=== PATIENT | male | born 1965 | race Two or more races ===

== ENCOUNTER 2017-04-27 10:42 | Inpatient (IN) | payer OTHER ==
[2017-04-27 10:59] VITALS: BMI 22.8
--- NOTE | 2017-04-27 12:32 | HP ---
CIWA Score - CIWA Score Nausea/Vomitin Muscle Tremors: 3 Anxiety: 4-Mod. Anxious/Guarded Agitation: 4-Moderately Restless Paroxysmal Sweats: 1-Minimal Palms Moist Orientation: 0-Oriented Tacttile Disturbances: 3-Moderate Itch/Numb/Burn Auditory Disturbances: 0-None Visual Disturbances: 0-None Headache: 0-None Present CIWA-Ar Total Score: 18 Admission ROS BHS - HPI Chief Complaint: DETOX TX FOR ALCOHOL DEPENDENCE Allergies/Adverse Reactions: Allergies Allergy/AdvReac Type Severity Reaction Status Date / Time No Known Allergies Allergy Verified 04/27/17 11:36 History of Present Illness: 51 Y/O H/MALE WITH A HX OF ALCOHOL, COCAINE,AND MARIJUANA DEPENENCE ON MMTP SEEKING DETOX TX Exam Limitations: No Limitations - Ebola screening Have you traveled outside of the country in the last 21 days: No Have you had contact with anyone from an Ebola affected area: No Have you been sick,other than usual withdrawal symptoms: No Do you have a fever: No - Review of Systems Constitutional: Chills, Loss of Appetite, Night Sweats, Changes in sleep EENT: reports: Tearing, Nose Congestion, Dental Problems (FULL UPPER AND PARTIAL BOTTOM DENTURES) Respiratory: reports: No Symptoms reported Cardiac: reports: Lightheadedness GI: reports: Diarrhea, Nausea, Poor Appetite, Poor Fluid Intake, Vomiting : reports: No Symptoms Reported Musculoskeletal: reports: Back Pain, Joint Pain, Muscle Pain Integumentary: reports: Other (TATTOOS ON UPPER EXTREMITIES) Neuro: reports: Headache, Tremors, Unsteady Gait, Dizziness Endocrine: reports: No Symptoms Reported Hematology: reports: No Symptoms Reported Psychiatric: reports: Orientated x3, Agitated, Anxious, Depressed Other Systems: Reviewed and Negative Patient History - Patient Medical History Hx Anemia: No Hx Asthma: No Hx Chronic Obstructive Pulmonary Disease (COPD): No Hx Cancer: No Hx Cardiac Disorders: No Hx Congestive Heart Failure: No Hx Hypertension: No Hx Hypercholesterolemia: No Hx Pacemaker: No HX Cerebrovascular Accident: No Hx Seizures: No Hx Dementia: No Hx Diabetes: No Hx Gastrointestinal Disorders: No Hx Liver Disease: No Hx Genitourinary Disorders: No Hx Sexually Transmitted Disorders: No (DENIES) Hx Renal Disease (ESRD): No Hx Thyroid Disease: No Hx Human Immunodeficiency Virus (HIV): No (NEGATIVE HX) Hx Hepatitis C: Yes Hx Depression: Yes (WAS ON CYMBALTA IN THE PAST;DECLINED TO SEE PSYCH HERE.) Hx Suicide Attempt: No Hx Bipolar Disorder: No Hx Schizophrenia: No - Patient Surgical History Past Surgical History: Yes Hx Neurologic Surgery: No Hx Cataract Extraction: No Hx Cardiac Surgery: No Hx Lung Surgery: No Hx Breast Surgery: No Hx Breast Biopsy: No Hx Abdominal Surgery: No Hx Appendectomy: No Hx Cholecystectomy: No Hx Genitourinary Surgery: No Hx Orthopedic Surgery: Yes (L knee sx in 1996) Other Surgical History: R foot sx x2 for tendonitis and bone spurs in 2009 Anesthesia Reaction: No - PPD History Previous Implant?: Yes Documented Results: Negative w/proof Implanted On Prior [facility] Admission?: Yes Date: 03/03/14 Results: 0 mm PPD to be Administered?: Yes - Reproductive History Patient is a Female of Child Bearing Age (11 -55 yrs old): No (MALE) - Smoking Cessation Smoking history: Current every day smoker Have you smoked in the past 12 months: Yes Aproximately how many cigarettes per day: 20 Hx Chewing Tobacco Use: No Initiated information on smoking cessation: Yes 'Breaking Loose' booklet given: 04/27/17 - Substance & Tx. History Hx Alcohol Use: Yes (BEER) Hx Substance Use: Yes (COCAINE/MARIJUANA) Substance Use Type: Alcohol, Cocaine, Marijuana Hx Substance Use Treatment: Yes (LAST TX AT [facility] IN 2013.) - Substances Abused Alcohol Route: Oral Frequency: Daily Amount used: beer(2-6pks-24 oz) Age of first use: 15 Date of Last Use: 04/26/17 Cocaine Route: Smoking Frequency: Daily Amount used: $100 Age of first use: 18 Date of Last Use: 04/26/17 Marijuana/Hashish Route: Smoking Frequency: Daily Amount used: $60 Age of first use: 14 Date of Last Use: 04/27/17 Family Disease History - Family Disease History Family Disease History: Diabetes: Mother (HTN, throid), Heart Disease: Father, Mother, Other: Mother Admission Physical Exam BHS - Vital Signs Vital Signs: Vital Signs - 24 hr 04/27/17 10:56 Temperature 98.1 F Pulse Rate 70 Respiratory 18 Rate Blood Pressure 154/83 - Physical General Appearance: Yes: Moderate Distress, Irritable, Anxious HEENTM: Yes: EOMI, Normocephalic, CARLINE, Pharynx Normal, Nasal Congestion, Rhinorrhea, Other (NASAL SEPTAL DEVIATION) Respiratory: Yes: Lungs Clear, Normal Breath Sounds, No Respiratory Distress Neck: Yes: Supple, Trachea in good position Breast: Yes: Breast Exam Deferred Cardiology: Yes: Regular Rhythm, Regular Rate, S1, S2 Abdominal: Yes: Normal Bowel Sounds, Non Tender, Soft Genitourinary: Yes: Other (N/C) Back: Yes: Within Normal Limits Musculoskeletal: Yes: full range of Motion, Gait Steady Extremities: Yes: Normal Range of Motion, Non-Tender Neurological: Yes: master deputy sheriff court security II-XII NML intact, Fully Oriented, Alert Integumentary: Yes: Dry, Warm, Other (TATTOO ON LEFT FOREARM) - Diagnostic (1) Nicotine dependence Current Visit: Yes Status: Acute Qualifiers: Nicotine product type: cigarettes Substance use status: in withdrawal Qualified Code(s): F17.213 - Nicotine dependence, cigarettes, with withdrawal (2) Alcohol dependence with uncomplicated withdrawal Current Visit: Yes Status: Acute (3) Cocaine dependence, uncomplicated Current Visit: Yes Status: Acute (4) Cannabis dependence, uncomplicated Current Visit: Yes Status: Acute Cleared for Admission BHS - Detox or Rehab Detox Regimen/Protocol: Librium S Breath Alcohol Content Breath Alcohol Content: 0 Urine Drug Screen - Results Drug Screen Negative: No Urine Drug Screen Results: THC-Marijuana, ZANDRA-Cocaine, OPI-Opiates, MTD- Methadone
[2017-04-27] MEDS ORDERED: guaiFENesin/D-METHORPHAN HB 10 ML UNIT-DOSE CUPS PO PRN (12:43)
[2017-04-27] MEDS ORDERED: MAGNESIUM HYDROX 2400MG/30ML ORAL SUSPENSION 30 ML CUP PO PRN (12:43)
[2017-04-27] MEDS ORDERED: ACETAMINOPHEN 325 MG TABLET (FP) PO PRN (12:43)
[2017-04-27] MEDS ORDERED: chlordiazePOXIDE HCL 25 MG CAPSULE PO PRN (12:43)
[2017-04-27] MEDS ORDERED: MENTHOL/PHENOL 1 EACH UD MM PRN (12:43)
[2017-04-27] MEDS ORDERED: NICOTINE POLACRILEX 4 MG GUM BUC PRN (12:43)
[2017-04-27] MEDS ORDERED: LOPERAMIDE HCL 2 MG CAPSULE PO PRN (12:43)
[2017-04-27] MEDS ORDERED: P-EPHED 60MG/TRIPROLIDI 2.5MG TABLET PO PRN (12:43)
[2017-04-27] MEDS ORDERED: MAGNESIUM CITRATE 300 ML BOTTLE PO PRN (12:43)
[2017-04-27] MEDS ORDERED: IBUPROFEN 400 MG TABLET (FP) PO PRN (12:43)
[2017-04-27] MEDS ORDERED: chlordiazePOXIDE HCL 25 MG CAPSULE PO ONE (12:48)
[2017-04-27] MEDS: NICOTINE 21 MG/24 HOURS TOPICAL PATCH TD SCH (13:22)
[2017-04-27 14:38] LABS: HIV 1 & 2 AB NEGATIVE; HIV 1 AGp24 NEGATIVE
[2017-04-27] MEDS: chlordiazePOXIDE HCL 25 MG CAPSULE PO SCH ×2 (17:06→22:49)
[2017-04-27 18:27] LABS: URINE APPEARANCE CLEAR; URINE BILIRUBIN NEGATIVE (NEGATIVE); URINE BLOOD NEGATIVE (NEGATIVE); URINE COLOR YELLOW; URINE GLUCOSE (UA) NEGATIVE (NEGATIVE); URINE KETONE TRACE (NEGATIVE); URINE NITRITE NEGATIVE (NEGATIVE); URINE PROTEIN NEGATIVE (NEGATIVE); URINE UROBILINOGEN NEGATIVE E.U./dl (0.2-1.0)
[2017-04-27 18:28] LABS: URINE LEUK ESTERASE TRACE (NEGATIVE)
[2017-04-27 18:33] LABS: CALCIUM OXALATE CRYSTALS RARE /hpf (NONE SEEN); URINE BACTERIA RARE /hpf (NONE SEEN); URINE MUCUS FEW; URINE RBC 2 /hpf (0-3); URINE WBC <1 /hpf (3-5)
[2017-04-27] MEDS: THIAMINE HCL 100 MG TABLET (FP) PO SCH (22:49)
[2017-04-28] MEDS: chlordiazePOXIDE HCL 25 MG CAPSULE PO SCH ×4 (05:40→22:55)
[2017-04-28] MEDS: METHADONE HCL 40 MG DISPERSABLE TABLET PO SCH (05:40)
[2017-04-28 10:23] LABS: MCH 32.4 pg (25.7-33.7); MCHC 33.8 g/dl (32.0-35.9); MEAN CELL VOLUME 95.8 fl (80-96); MEAN PLT VOLUME 10.1 fl (7.5-11.1); PLATELET COUNT 189 K/MM3 (134-434); RDW 13.7 % (11.9-15.9); WHITE BLOOD COUNT 7.6 K/mm3 (4.0-10.0)
[2017-04-28] MEDS: PRENATAL VITAMINS W/ FOLIC ACID TABLET (FP) PO SCH (10:53)
[2017-04-28] MEDS: NICOTINE 21 MG/24 HOURS TOPICAL PATCH TD SCH (10:54)
[2017-04-28 11:00] LABS: SICKLE CELL SCREEN NEGATIVE (NEGATIVE)
[2017-04-28 11:06] LABS: ALBUMIN 4.2 g/dl (3.4-5.0); ALK PHOS 59 U/L (45-117); ANION GAP 8 (8-16); BILIRUBIN,TOTAL 0.8 mg/dL (0.2-1.0); CO2 27 mmol/L (21-32); CREATININE 0.9 mg/dL (0.7-1.3); GLUCOSE,RANDOM 74 mg/dL (74-106); SGOT/AST 37 U/L (15-37); SGPT/ALT 65 U/L (12-78); TOT PROT 7.9 g/dl (6.4-8.2)
--- NOTE | 2017-04-28 14:48 | PN ---
[facility] CIWA - CIWA Score Nausea/Vomitin-Mild Nausea/No Vomiting Muscle Tremors: 4-Moderate,w/Arms Extend Anxiety: 2 Agitation: 2 Paroxysmal Sweats: 1-Minimal Palms Moist Orientation: 0-Oriented Tacttile Disturbances: 2-Mild Itch/Numbness/Burn Auditory Disturbances: 2-Mild Harshness/Frighten Visual Disturbances: 3-Moderate Sensitivity Headache: 0-None Present CIWA-Ar Total Score: 17 S Progress Note (SOAP) Subjective: Fatigue, Tremors, Lower Back ache. Objective: PT. A & O X 3, OBSERVED AMBULATING ON UNIT. NO ACUTE DISTRESS. 04/28/17 14:46 Vital Signs Temperature 97.4 F L 04/28/17 13:49 Pulse Rate 56 L 04/28/17 13:49 Respiratory Rate 20 04/28/17 13:49 Blood Pressure 108/70 04/28/17 13:49 O2 Sat by Pulse Oximetry (%) Laboratory Tests 04/27/17 04/27/17 04/28/17 12:00 14:00 06:00 WBC 7.6 RBC 4.43 Hgb 14.4 Hct 42.5 MCV 95.8 MCHC 33.8 RDW 13.7 Plt Count 189 MPV 10.1 Sickle Cell Screen Negative Sodium Potassium Chloride Carbon Dioxide Anion Gap BUN Creatinine Creat Clearance w eGFR Random Glucose Calcium Total Bilirubin AST ALT Alkaline Phosphatase Total Protein Albumin Urine Color Yellow Urine Appearance Clear Urine pH 5.0 Ur Specific [place] >= 1.030 H Urine Protein Negative Urine Glucose (UA) Negative Urine Ketones Trace H Urine Blood Negative Urine Nitrite Negative Urine Bilirubin Negative Urine Urobilinogen Negative Ur Leukocyte Esterase Trace H Urine RBC 2 Urine WBC <1 Calcium Oxalate Crystal Rare Urine Bacteria Rare Urine Mucus Few RPR Titer HIV 1&2 Antibody Screen Negative HIV P24 Antigen Negative 04/28/17 04/28/17 06:00 06:00 WBC RBC Hgb Hct MCV MCHC RDW Plt Count MPV Sickle Cell Screen Sodium 140 Potassium 4.4 Chloride 105 Carbon Dioxide 27 Anion Gap 8 BUN 15 Creatinine 0.9 Creat Clearance w eGFR > 60 Random Glucose 74 Calcium 9.0 Total Bilirubin 0.8 D AST 37 D ALT 65 D Alkaline Phosphatase 59 Total Protein 7.9 Albumin 4.2 Urine Color Urine Appearance Urine pH Ur Specific [place] Urine Protein Urine Glucose (UA) Urine Ketones Urine Blood Urine Nitrite Urine Bilirubin Urine Urobilinogen Ur Leukocyte Esterase Urine RBC Urine WBC Calcium Oxalate Crystal Urine Bacteria Urine Mucus RPR Titer Nonreactive HIV 1&2 Antibody Screen HIV P24 Antigen LABS NOTED. Assessment: 04/28/17 14:46 WITHDRAWAL SYMPTOMS. Plan: CONTINUE DETOX.
--- NOTE | 2017-04-28 15:52 | EKG ---
Test Reason : Blood Pressure : / mmHG Vent. Rate : 051 BPM Atrial Rate : 051 BPM P-R Int : 160 ms QRS Dur : 090 ms QT Int : 494 ms P-R-T Axes : 064 025 034 degrees QTc Int : 455 ms SINUS BRADYCARDIA OTHERWISE NORMAL ECG NO PREVIOUS ECGS AVAILABLE Confirmed by MIKA YUAN MD ([id number]) on 04/28/2017 3:52:00 PM Referred By: Zaid Negrete Confirmed By:MIKA YUAN MD
[2017-04-28] MEDS: THIAMINE HCL 100 MG TABLET (FP) PO SCH (22:54)
[2017-04-28] MEDS: diphenhydrAMINE HCL 50 MG CAPSULE PO PRN (22:55)
[2017-04-29] MEDS: METHADONE HCL 40 MG DISPERSABLE TABLET PO SCH (05:43)
[2017-04-29] MEDS: chlordiazePOXIDE HCL 25 MG CAPSULE PO SCH ×2 (05:43→10:50)
[2017-04-29] MEDS: MAG HYDROX/AL HYDROX/SIMETH 30 ML UNIT-DOSE CUP PO PRN ×2 (07:44→14:24)
[2017-04-29] MEDS: PRENATAL VITAMINS W/ FOLIC ACID TABLET (FP) PO SCH (10:50)
[2017-04-29] MEDS: NICOTINE 21 MG/24 HOURS TOPICAL PATCH TD SCH (10:51)
--- NOTE | 2017-04-29 12:19 | PN ---
S CIWA - CIWA Score Nausea/Vomitin Muscle Tremors: 4-Moderate,w/Arms Extend Anxiety: 1-Mildly Anxious Agitation: 2 Paroxysmal Sweats: 3 Orientation: 2-Disoriented Date<2 days Tacttile Disturbances: 0-None Auditory Disturbances: 0-None Visual Disturbances: 2-Mild Sensitivity Headache: 0-None Present CIWA-Ar Total Score: 17 BHS Progress Note (SOAP) Subjective: Tremors, Nausea, Lower Back Ache, Constipation, Interrupted sleep, Sweating. Objective: PT. A & O X 2 (DISORIENTED ABOUT DAY / DATE). PT. OBSERVED AMBULATING ON UNIT. NO ACUTE DISTRESS. 04/29/17 12:17 Vital Signs Temperature 97.5 F L 04/29/17 10:17 Pulse Rate 59 L 04/29/17 10:17 Respiratory Rate 18 04/29/17 10:17 Blood Pressure 129/90 04/29/17 10:17 O2 Sat by Pulse Oximetry (%) Laboratory Tests 04/27/17 04/27/17 04/28/17 12:00 14:00 06:00 WBC 7.6 RBC 4.43 Hgb 14.4 Hct 42.5 MCV 95.8 MCHC 33.8 RDW 13.7 Plt Count 189 MPV 10.1 Sickle Cell Screen Negative Sodium Potassium Chloride Carbon Dioxide Anion Gap BUN Creatinine Creat Clearance w eGFR Random Glucose Calcium Total Bilirubin AST ALT Alkaline Phosphatase Total Protein Albumin Urine Color Yellow Urine Appearance Clear Urine pH 5.0 Ur Specific [place] >= 1.030 H Urine Protein Negative Urine Glucose (UA) Negative Urine Ketones Trace H Urine Blood Negative Urine Nitrite Negative Urine Bilirubin Negative Urine Urobilinogen Negative Ur Leukocyte Esterase Trace H Urine RBC 2 Urine WBC <1 Calcium Oxalate Crystal Rare Urine Bacteria Rare Urine Mucus Few RPR Titer HIV 1&2 Antibody Screen Negative HIV P24 Antigen Negative 04/28/17 04/28/17 06:00 06:00 WBC RBC Hgb Hct MCV MCHC RDW Plt Count MPV Sickle Cell Screen Sodium 140 Potassium 4.4 Chloride 105 Carbon Dioxide 27 Anion Gap 8 BUN 15 Creatinine 0.9 Creat Clearance w eGFR > 60 Random Glucose 74 Calcium 9.0 Total Bilirubin 0.8 D AST 37 D ALT 65 D Alkaline Phosphatase 59 Total Protein 7.9 Albumin 4.2 Urine Color Urine Appearance Urine pH Ur Specific [place] Urine Protein Urine Glucose (UA) Urine Ketones Urine Blood Urine Nitrite Urine Bilirubin Urine Urobilinogen Ur Leukocyte Esterase Urine RBC Urine WBC Calcium Oxalate Crystal Urine Bacteria Urine Mucus RPR Titer Nonreactive HIV 1&2 Antibody Screen HIV P24 Antigen LABS NOTED. Assessment: 04/29/17 12:18 WITHDRAWAL SYMPTOMS. Plan: CONTINUE DETOX. PRN MOM FOR CONSTIPATION. INCREASE PO FLUID INTAKE.
[2017-04-29] MEDS: RANITIDINE HCL 150 MG TABLET (FP) PO SCH ×2 (12:56→22:39)
[2017-04-29] MEDS: chlordiazePOXIDE 5 MG CAPSULE PO SCH ×2 (17:00→22:39)
[2017-04-29] MEDS: THIAMINE HCL 100 MG TABLET (FP) PO SCH (22:39)
[2017-04-29] MEDS: diphenhydrAMINE HCL 50 MG CAPSULE PO PRN (22:40)
[2017-04-30] MEDS: MAG HYDROX/AL HYDROX/SIMETH 30 ML UNIT-DOSE CUP PO PRN (01:45)
[2017-04-30] MEDS: chlordiazePOXIDE 5 MG CAPSULE PO SCH ×2 (05:22→10:25)
[2017-04-30] MEDS: METHADONE HCL 40 MG DISPERSABLE TABLET PO SCH (05:22)
[2017-04-30] MEDS: RANITIDINE HCL 150 MG TABLET (FP) PO SCH ×2 (10:25→22:03)
[2017-04-30] MEDS: PRENATAL VITAMINS W/ FOLIC ACID TABLET (FP) PO SCH (10:25)
[2017-04-30] MEDS: NICOTINE 21 MG/24 HOURS TOPICAL PATCH TD SCH (10:25)
[2017-04-30] MEDS: DOCUSATE SODIUM 100 MG CAPSULE (FP) PO SCH ×2 (14:06→22:03)
--- NOTE | 2017-04-30 14:58 | PN ---
BHS Progress Note (SOAP) Subjective: Nausea, Stomach Cramping, Constipation, Interrupted Sleep, Lower Back ache. Objective: PT. A & O X 2 (DISORIENTED ABOUT DAY / DATE). PT. OBSERVED AMBULATING ON UNIT. NO ACUTE DISTRESS. 04/30/17 14:56 Vital Signs Temperature 96.8 F L 04/30/17 13:44 Pulse Rate 67 04/30/17 13:44 Respiratory Rate 18 04/30/17 13:44 Blood Pressure 117/78 04/30/17 13:44 O2 Sat by Pulse Oximetry (%) Laboratory Tests 04/27/17 04/27/17 04/28/17 12:00 14:00 06:00 WBC 7.6 RBC 4.43 Hgb 14.4 Hct 42.5 MCV 95.8 MCHC 33.8 RDW 13.7 Plt Count 189 MPV 10.1 Sickle Cell Screen Negative Sodium Potassium Chloride Carbon Dioxide Anion Gap BUN Creatinine Creat Clearance w eGFR Random Glucose Calcium Total Bilirubin AST ALT Alkaline Phosphatase Total Protein Albumin Urine Color Yellow Urine Appearance Clear Urine pH 5.0 Ur Specific [place] >= 1.030 H Urine Protein Negative Urine Glucose (UA) Negative Urine Ketones Trace H Urine Blood Negative Urine Nitrite Negative Urine Bilirubin Negative Urine Urobilinogen Negative Ur Leukocyte Esterase Trace H Urine RBC 2 Urine WBC <1 Calcium Oxalate Crystal Rare Urine Bacteria Rare Urine Mucus Few RPR Titer HIV 1&2 Antibody Screen Negative HIV P24 Antigen Negative 04/28/17 04/28/17 06:00 06:00 WBC RBC Hgb Hct MCV MCHC RDW Plt Count MPV Sickle Cell Screen Sodium 140 Potassium 4.4 Chloride 105 Carbon Dioxide 27 Anion Gap 8 BUN 15 Creatinine 0.9 Creat Clearance w eGFR > 60 Random Glucose 74 Calcium 9.0 Total Bilirubin 0.8 D AST 37 D ALT 65 D Alkaline Phosphatase 59 Total Protein 7.9 Albumin 4.2 Urine Color Urine Appearance Urine pH Ur Specific [place] Urine Protein Urine Glucose (UA) Urine Ketones Urine Blood Urine Nitrite Urine Bilirubin Urine Urobilinogen Ur Leukocyte Esterase Urine RBC Urine WBC Calcium Oxalate Crystal Urine Bacteria Urine Mucus RPR Titer Nonreactive HIV 1&2 Antibody Screen HIV P24 Antigen LABS NOTED. Assessment: 04/30/17 14:56 WITHDRAWAL SYMPTOMS. Plan: CONTINUE DETOX. COLACE, 100 MG PO BID FOR CONSTIPATION.
[2017-04-30] MEDS: chlordiazePOXIDE HCL 10 MG CAPSULE PO SCH ×2 (17:25→22:03)
[2017-04-30] MEDS: diphenhydrAMINE HCL 50 MG CAPSULE PO PRN (22:03)
[2017-04-30] MEDS: THIAMINE HCL 100 MG TABLET (FP) PO SCH (22:04)
[2017-05-01] MEDS: METHADONE HCL 40 MG DISPERSABLE TABLET PO SCH (06:07)
[2017-05-01] MEDS: chlordiazePOXIDE HCL 10 MG CAPSULE PO SCH ×2 (06:08→10:19)
[2017-05-01 06:18] VITALS: BP 110/72; PULSE 62; TEMP 97.3
[2017-05-01] MEDS: PRENATAL VITAMINS W/ FOLIC ACID TABLET (FP) PO SCH (10:18)
[2017-05-01] MEDS: RANITIDINE HCL 150 MG TABLET (FP) PO SCH (10:18)
[2017-05-01] MEDS: DOCUSATE SODIUM 100 MG CAPSULE (FP) PO SCH (10:18)
[2017-05-01] MEDS: MAG HYDROX/AL HYDROX/SIMETH 30 ML UNIT-DOSE CUP PO PRN (10:19)
[2017-05-01] MEDS: NICOTINE 21 MG/24 HOURS TOPICAL PATCH TD SCH (10:21)
--- NOTE | 2017-05-01 14:43 | DS ---
[facility] Detox Discharge Summary Admission Date: 04/27/17 Discharge Date: 05/01/17 - History Present History: Alcohol Dependence, Cannabis Dependence, Cocaine Dependence, Opioid Dependence, MMTP Pertinent Past History: GERD Hepatitis C - Physical Exam Results Vital Signs: Vital Signs Temperature 97.3 F L 05/01/17 06:17 Pulse Rate 62 05/01/17 06:17 Respiratory Rate 18 05/01/17 06:17 Blood Pressure 110/72 05/01/17 06:17 O2 Sat by Pulse Oximetry (%) Pertinent Admission Physical Exam Findings: Withdrawal symptoms Laboratory Tests 04/27/17 04/27/17 04/28/17 12:00 14:00 06:00 WBC 7.6 RBC 4.43 Hgb 14.4 Hct 42.5 MCV 95.8 MCHC 33.8 RDW 13.7 Plt Count 189 MPV 10.1 Sickle Cell Screen Negative Sodium Potassium Chloride Carbon Dioxide Anion Gap BUN Creatinine Creat Clearance w eGFR Random Glucose Calcium Total Bilirubin AST ALT Alkaline Phosphatase Total Protein Albumin Urine Color Yellow Urine Appearance Clear Urine pH 5.0 Ur Specific [place] >= 1.030 H Urine Protein Negative Urine Glucose (UA) Negative Urine Ketones Trace H Urine Blood Negative Urine Nitrite Negative Urine Bilirubin Negative Urine Urobilinogen Negative Ur Leukocyte Esterase Trace H Urine RBC 2 Urine WBC <1 Calcium Oxalate Crystal Rare Urine Bacteria Rare Urine Mucus Few RPR Titer HIV 1&2 Antibody Screen Negative HIV P24 Antigen Negative 04/28/17 04/28/17 06:00 06:00 WBC RBC Hgb Hct MCV MCHC RDW Plt Count MPV Sickle Cell Screen Sodium 140 Potassium 4.4 Chloride 105 Carbon Dioxide 27 Anion Gap 8 BUN 15 Creatinine 0.9 Creat Clearance w eGFR > 60 Random Glucose 74 Calcium 9.0 Total Bilirubin 0.8 D AST 37 D ALT 65 D Alkaline Phosphatase 59 Total Protein 7.9 Albumin 4.2 Urine Color Urine Appearance Urine pH Ur Specific [place] Urine Protein Urine Glucose (UA) Urine Ketones Urine Blood Urine Nitrite Urine Bilirubin Urine Urobilinogen Ur Leukocyte Esterase Urine RBC Urine WBC Calcium Oxalate Crystal Urine Bacteria Urine Mucus RPR Titer Nonreactive HIV 1&2 Antibody Screen HIV P24 Antigen Labs noted - Treatment Hospital Course: Detox Protocol Followed, Detoxed Safely, Responded well, Discharged Condition Good, Rehab Referral Accepted - Medication Discharge Medications: Ambulatory Orders NK [No Known Home Medication] 03/01/14 - Diagnosis (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
== END 2017-05-01 10:51 | disposition other institution (70) | DRG 773 ==
LOC: YASAS 10:42 → Y3N 12:07
PROVIDERS: ADMIT Internal Medicine; ATTEND Internal Medicine
PROC: HZ2ZZZZ Detoxification Services for Substance Abuse Treatment (ICD-10-PCS; principal; 2017-04-27)
DX: F10.230 Alcohol dependence with withdrawal, uncomplicated (principal); F11.20 Opioid dependence, uncomplicated; F14.20 Cocaine dependence, uncomplicated; F12.20 Cannabis dependence, uncomplicated; F17.213 Nicotine dependence, cigarettes, with withdrawal; F32.9 Major depressive disorder, single episode, unspecified; B18.2 Chronic viral hepatitis C; K21.9 Gastro-esophageal reflux disease without esophagitis
CPT/HCPCS: 36415; 80053; 81003; 81015; 85027; 85660; 86593; 87389; 93005; 93010

== ENCOUNTER 2017-05-01 12:09 | Inpatient (IN) | payer OTHER ==
[2017-05-01] MEDS ORDERED: ACETAMINOPHEN 325 MG TABLET (FP) PO PRN (12:49)
[2017-05-01] MEDS ORDERED: guaiFENesin/D-METHORPHAN HB 10 ML UNIT-DOSE CUPS PO PRN (12:49)
[2017-05-01] MEDS ORDERED: MENTHOL/PHENOL 1 EACH UD MM PRN (12:49)
[2017-05-01] MEDS ORDERED: hydrOXYzine PAMOATE 50 MG CAPSULE (FP) PO PRN (12:49)
[2017-05-01] MEDS ORDERED: IBUPROFEN 400 MG TABLET (FP) PO PRN (12:49)
[2017-05-01] MEDS ORDERED: LOPERAMIDE HCL 2 MG CAPSULE PO PRN (12:49)
[2017-05-01] MEDS ORDERED: MAGNESIUM CITRATE 300 ML BOTTLE PO PRN (12:49)
[2017-05-01] MEDS ORDERED: diphenhydrAMINE HCL 50 MG CAPSULE PO PRN (12:49)
[2017-05-01] MEDS ORDERED: P-EPHED 60MG/TRIPROLIDI 2.5MG TABLET PO PRN (12:49)
--- NOTE | 2017-05-01 13:49 | HP ---
[facility] Rehab Assess/Revision - Admission History Admitted to Rehab from: [facility] Date of Admission to Rehab: 05/01/17 - Vital signs Vital Signs: Vital Signs Period Temp Pulse Resp BP Sys/[place] Pulse Ox Last 24 Hr 98 F 58 18 132/73 - Findings Detox History & Physical reviewed: Yes Concur with findings: Yes Comments/Additional Findings: FOR REHAB PRTOCOL
[2017-05-01] MEDS: DOCUSATE SODIUM 100 MG CAPSULE (FP) PO SCH ×2 (14:45→21:43)
[2017-05-01] MEDS: MAG HYDROX/AL HYDROX/SIMETH 30 ML UNIT-DOSE CUP PO PRN (20:01)
[2017-05-01] MEDS: THIAMINE HCL 100 MG TABLET (FP) PO SCH (23:17)
[2017-05-02] MEDS: DOCUSATE SODIUM 100 MG CAPSULE (FP) PO SCH ×3 (06:14→21:38)
[2017-05-02] MEDS: METHADONE HCL 40 MG DISPERSABLE TABLET PO SCH (06:14)
--- NOTE | 2017-05-02 06:52 | HP ---
Psychiatrist Admission - Data Date of interview: 05/02/17 Admission source: 3N Identifying data: This the first [facility] admission for this 51 years old single male, father of 2 children, unemployed on food stamp, domiciled Medical History: Significant for GERD, Hep C and history of orthosurgery for fracture left knee in the s and tendonitis & removal of bone spur on heel of both feet Psychiatric History: Reports receiving psychiatric treatment for depresion in 2008 while attending [facility] outpatient. Claims that he was prescribed Cymbalta and another medication for sleep. He took these medications for approximately a year. Denies previous psychiatric hospitalization or suicidal attempt. At present reports feeling depressed due current circumstances and sleeping poorly Physical/Sexual Abuse/Trauma History: Denies history of emotional, physical or sexual abuse as well as DV relationship. No service Additional Comment: Reports history of multiple arrests fro drug sale including 3 felony convictions. Denies being on parole/probation at present Vital Signs: Vital Signs - 24 hr 05/01/17 05/02/17 05/02/17 12:32 00:30 03:30 Temperature 98 F Pulse Rate 58 L Respiratory 18 18 18 Rate Blood Pressure 132/73 Allergies/Adverse Reactions: Allergies Allergy/AdvReac Type Severity Reaction Status Date / Time No Known Allergies Allergy Verified 04/27/17 11:36 Date of last physical exam: 04/27/17 Concur with the findings of this exam: Yes - Substance Abuse/Tx History Hx Alcohol Use: Yes Hx Substance Use: Yes Substance Use Type: Alcohol (Started drinkikng at age 15, consumes 2x 6pk of beer daily.Last drink on 04/26/17), Cocaine (Started smoking crack cocaine at age 18, consumes $100 worth daily. Last smoked on 04/26/17), Marijuana (Started smoking marijuana at age 14, consumes $60 worth daily. Last smoked on 04/27/17), Opiates (Currently attends [facility] on methadone 200 mg/day) Hx Substance Use Treatment: Yes (4 previous inpt detox @ [facility]. Attends [facility]) - Admission Criteria Previous failed treatment: Yes Poor recovery environment: Yes Comorbidities: Yes Lacks judgement: Yes Mental Status Exam - Mental Status Exam Alert and Oriented to: Time, Place, Person Cognitive Function: Fair Patient Appearance: Well Groomed Mood: Depressed Affect: Appropriate Patient Behavior: Cooperative Speech Pattern: Clear Voice Loudness: Normal Thought Process: Intact, Goal Oriented Thought Disorder: Not Present Hallucinations: Denies Suicidal Ideation: Denies Homicidal Ideation: Denies Insight/Judgement: Fair Sleep: Poorly Appetite: Good Muscle strength/Tone: Normal Gait/Station: Normal Psychiatric Findings - Problem List ([place] 1, 2,3) (1) Alcohol dependence Current Visit: Yes Status: Acute (2) Cocaine dependence Current Visit: Yes Status: Acute (3) Cannabis dependence Current Visit: Yes Status: Acute (4) Opioid dependence on agonist therapy Current Visit: Yes Status: Acute (5) Nicotine dependence Current Visit: No Status: Chronic Qualifiers: Nicotine product type: cigarettes Substance use status: in withdrawal Qualified Code(s): F17.213 - Nicotine dependence, cigarettes, with withdrawal (6) Substance induced mood disorder Current Visit: Yes Status: Acute (7) Substance-induced sleep disorder Current Visit: Yes Status: Acute (8) Hepatitis C virus Current Visit: Yes Status: Acute (9) GERD (gastroesophageal reflux disease) Current Visit: Yes Status: Acute - Initial Treatment Plan Initial Treatment Plan: 1) Trazadone 100 mg po HS for insomnia. 2) Monitor progress
[2017-05-02] MEDS: PRENATAL VITAMINS W/ FOLIC ACID TABLET (FP) PO SCH (10:04)
[2017-05-02] MEDS: NICOTINE 21 MG/24 HOURS TOPICAL PATCH TD SCH (10:04)
[2017-05-02] MEDS: MAG HYDROX/AL HYDROX/SIMETH 30 ML UNIT-DOSE CUP PO PRN (16:46)
[2017-05-02] MEDS ORDERED: SIMETHICONE 80 MG TAB.CHEW (FP) PO ONE (21:07)
[2017-05-02] MEDS: traZODone HCL 100 MG TABLET (FP) PO SCH (21:38)
[2017-05-02] MEDS: THIAMINE HCL 100 MG TABLET (FP) PO SCH (21:38)
[2017-05-03] MEDS: MAG HYDROX/AL HYDROX/SIMETH 30 ML UNIT-DOSE CUP PO PRN ×3 (00:39→18:19)
[2017-05-03] MEDS: DOCUSATE SODIUM 100 MG CAPSULE (FP) PO SCH ×3 (06:10→21:14)
[2017-05-03] MEDS: METHADONE HCL 40 MG DISPERSABLE TABLET PO SCH (06:10)
[2017-05-03] MEDS: PRENATAL VITAMINS W/ FOLIC ACID TABLET (FP) PO SCH (09:57)
[2017-05-03] MEDS: NICOTINE 21 MG/24 HOURS TOPICAL PATCH TD SCH (09:57)
[2017-05-03] MEDS: traZODone HCL 100 MG TABLET (FP) PO SCH (21:14)
[2017-05-03] MEDS: THIAMINE HCL 100 MG TABLET (FP) PO SCH (21:14)
[2017-05-03] MEDS: MAGNESIUM HYDROX 2400MG/30ML ORAL SUSPENSION 30 ML CUP PO PRN (21:15)
[2017-05-04] MEDS: METHADONE HCL 40 MG DISPERSABLE TABLET PO SCH (06:12)
[2017-05-04] MEDS: DOCUSATE SODIUM 100 MG CAPSULE (FP) PO SCH ×3 (06:12→21:20)
[2017-05-04] MEDS: PRENATAL VITAMINS W/ FOLIC ACID TABLET (FP) PO SCH (09:24)
[2017-05-04] MEDS: NICOTINE 21 MG/24 HOURS TOPICAL PATCH TD SCH (09:24)
[2017-05-04] MEDS: RANITIDINE HCL 150 MG TABLET (FP) PO SCH ×2 (10:05→21:20)
[2017-05-04] MEDS: MAGNESIUM HYDROX 2400MG/30ML ORAL SUSPENSION 30 ML CUP PO PRN (13:29)
[2017-05-04] MEDS: MAG HYDROX/AL HYDROX/SIMETH 30 ML UNIT-DOSE CUP PO PRN (18:00)
[2017-05-04] MEDS: traZODone HCL 100 MG TABLET (FP) PO SCH (21:20)
[2017-05-04] MEDS: THIAMINE HCL 100 MG TABLET (FP) PO SCH (21:20)
[2017-05-05] MEDS: METHADONE HCL 40 MG DISPERSABLE TABLET PO SCH (06:08)
[2017-05-05] MEDS: DOCUSATE SODIUM 100 MG CAPSULE (FP) PO SCH ×3 (06:08→21:38)
[2017-05-05] MEDS ORDERED: MAGNESIUM CITRATE 300 ML BOTTLE PO PRN (06:49)
[2017-05-05] MEDS: PRENATAL VITAMINS W/ FOLIC ACID TABLET (FP) PO SCH (09:39)
[2017-05-05] MEDS: NICOTINE 21 MG/24 HOURS TOPICAL PATCH TD SCH (09:39)
[2017-05-05] MEDS: RANITIDINE HCL 150 MG TABLET (FP) PO SCH ×2 (09:39→21:38)
[2017-05-05] MEDS: THIAMINE HCL 100 MG TABLET (FP) PO SCH (21:38)
[2017-05-05] MEDS: traZODone HCL 100 MG TABLET (FP) PO SCH (21:38)
[2017-05-06] MEDS: DOCUSATE SODIUM 100 MG CAPSULE (FP) PO SCH ×3 (06:06→21:44)
[2017-05-06] MEDS: METHADONE HCL 40 MG DISPERSABLE TABLET PO SCH (06:06)
[2017-05-06] MEDS: PRENATAL VITAMINS W/ FOLIC ACID TABLET (FP) PO SCH (09:57)
[2017-05-06] MEDS: RANITIDINE HCL 150 MG TABLET (FP) PO SCH ×2 (09:57→21:44)
[2017-05-06] MEDS: NICOTINE 21 MG/24 HOURS TOPICAL PATCH TD SCH (09:57)
[2017-05-06] MEDS: MAG HYDROX/AL HYDROX/SIMETH 30 ML UNIT-DOSE CUP PO PRN (18:46)
[2017-05-06] MEDS: THIAMINE HCL 100 MG TABLET (FP) PO SCH (21:44)
[2017-05-06] MEDS: traZODone HCL 100 MG TABLET (FP) PO SCH (21:44)
[2017-05-07] MEDS: DOCUSATE SODIUM 100 MG CAPSULE (FP) PO SCH ×3 (06:16→21:39)
[2017-05-07] MEDS: METHADONE HCL 40 MG DISPERSABLE TABLET PO SCH (06:17)
[2017-05-07] MEDS: RANITIDINE HCL 150 MG TABLET (FP) PO SCH ×2 (09:44→21:39)
[2017-05-07] MEDS: NICOTINE 21 MG/24 HOURS TOPICAL PATCH TD SCH (09:44)
[2017-05-07] MEDS: PRENATAL VITAMINS W/ FOLIC ACID TABLET (FP) PO SCH (09:44)
[2017-05-07] MEDS: traZODone HCL 100 MG TABLET (FP) PO SCH (21:39)
[2017-05-07] MEDS: THIAMINE HCL 100 MG TABLET (FP) PO SCH (21:39)
[2017-05-08] MEDS: METHADONE HCL 40 MG DISPERSABLE TABLET PO SCH (06:10)
[2017-05-08] MEDS: DOCUSATE SODIUM 100 MG CAPSULE (FP) PO SCH ×3 (06:10→21:11)
[2017-05-08] MEDS: RANITIDINE HCL 150 MG TABLET (FP) PO SCH ×2 (09:34→21:11)
[2017-05-08] MEDS: PRENATAL VITAMINS W/ FOLIC ACID TABLET (FP) PO SCH (09:35)
[2017-05-08] MEDS: NICOTINE 21 MG/24 HOURS TOPICAL PATCH TD SCH (09:35)
[2017-05-08] MEDS: MAG HYDROX/AL HYDROX/SIMETH 30 ML UNIT-DOSE CUP PO PRN (18:03)
[2017-05-08] MEDS: THIAMINE HCL 100 MG TABLET (FP) PO SCH (21:11)
[2017-05-08] MEDS: traZODone HCL 100 MG TABLET (FP) PO SCH (21:11)
[2017-05-09] MEDS: METHADONE HCL 40 MG DISPERSABLE TABLET PO SCH (06:17)
[2017-05-09] MEDS: DOCUSATE SODIUM 100 MG CAPSULE (FP) PO SCH ×3 (06:18→21:28)
--- NOTE | 2017-05-09 09:11 | PN ---
BHS Progress Note Note: patient has gas bloated,mylicon 80 mgs po qid prn
[2017-05-09] MEDS: NICOTINE 21 MG/24 HOURS TOPICAL PATCH TD SCH (10:09)
[2017-05-09] MEDS: SIMETHICONE 80 MG TAB.CHEW (FP) PO PRN ×3 (10:09→20:24)
[2017-05-09] MEDS: RANITIDINE HCL 150 MG TABLET (FP) PO SCH ×2 (10:09→21:28)
[2017-05-09] MEDS: PRENATAL VITAMINS W/ FOLIC ACID TABLET (FP) PO SCH (10:09)
[2017-05-09] MEDS: traZODone HCL 100 MG TABLET (FP) PO SCH (21:28)
[2017-05-09] MEDS: THIAMINE HCL 100 MG TABLET (FP) PO SCH (21:28)
[2017-05-10] MEDS: METHADONE HCL 40 MG DISPERSABLE TABLET PO SCH (06:26)
[2017-05-10] MEDS: DOCUSATE SODIUM 100 MG CAPSULE (FP) PO SCH ×3 (06:26→21:40)
[2017-05-10] MEDS: NICOTINE 21 MG/24 HOURS TOPICAL PATCH TD SCH (09:49)
[2017-05-10] MEDS: RANITIDINE HCL 150 MG TABLET (FP) PO SCH ×2 (09:50→21:40)
[2017-05-10] MEDS: PRENATAL VITAMINS W/ FOLIC ACID TABLET (FP) PO SCH (09:50)
[2017-05-10] MEDS: SIMETHICONE 80 MG TAB.CHEW (FP) PO PRN ×2 (09:51→13:52)
[2017-05-10] MEDS ORDERED: BISACODYL 5 MG TABLET.DR (FP) PO ONE (18:34)
--- NOTE | 2017-05-10 18:35 | PN ---
BHS Progress Note Note: c/o passing gas x 2 weeks dulcolax 10 mg x 1 now continue rehab
[2017-05-10] MEDS: traZODone HCL 100 MG TABLET (FP) PO SCH (21:40)
[2017-05-10] MEDS: THIAMINE HCL 100 MG TABLET (FP) PO SCH (21:40)
[2017-05-11] MEDS: METHADONE HCL 40 MG DISPERSABLE TABLET PO SCH (06:19)
[2017-05-11] MEDS: DOCUSATE SODIUM 100 MG CAPSULE (FP) PO SCH ×3 (06:19→21:07)
[2017-05-11] MEDS: RANITIDINE HCL 150 MG TABLET (FP) PO SCH ×2 (09:33→21:07)
[2017-05-11] MEDS: PRENATAL VITAMINS W/ FOLIC ACID TABLET (FP) PO SCH (09:33)
[2017-05-11] MEDS: NICOTINE 21 MG/24 HOURS TOPICAL PATCH TD SCH (09:34)
[2017-05-11] MEDS: traZODone HCL 100 MG TABLET (FP) PO SCH (21:07)
[2017-05-11] MEDS: THIAMINE HCL 100 MG TABLET (FP) PO SCH (21:07)
[2017-05-12] MEDS: DOCUSATE SODIUM 100 MG CAPSULE (FP) PO SCH ×3 (06:07→21:23)
[2017-05-12] MEDS: METHADONE HCL 40 MG DISPERSABLE TABLET PO SCH (06:07)
[2017-05-12] MEDS ORDERED: BISACODYL 10 MG SUPP.RECT RC PRN (07:01)
[2017-05-12] MEDS: PRENATAL VITAMINS W/ FOLIC ACID TABLET (FP) PO SCH (09:39)
[2017-05-12] MEDS: RANITIDINE HCL 150 MG TABLET (FP) PO SCH ×2 (09:39→21:23)
[2017-05-12] MEDS: SIMETHICONE 80 MG TAB.CHEW (FP) PO PRN (09:41)
[2017-05-12] MEDS: NICOTINE 21 MG/24 HOURS TOPICAL PATCH TD SCH (09:42)
[2017-05-12] MEDS: THIAMINE HCL 100 MG TABLET (FP) PO SCH (21:23)
[2017-05-12] MEDS: traZODone HCL 100 MG TABLET (FP) PO SCH (21:23)
[2017-05-13] MEDS: METHADONE HCL 40 MG DISPERSABLE TABLET PO SCH (06:14)
[2017-05-13] MEDS: DOCUSATE SODIUM 100 MG CAPSULE (FP) PO SCH ×3 (06:15→21:22)
[2017-05-13] MEDS: PRENATAL VITAMINS W/ FOLIC ACID TABLET (FP) PO SCH (09:39)
[2017-05-13] MEDS: NICOTINE 21 MG/24 HOURS TOPICAL PATCH TD SCH (09:40)
[2017-05-13] MEDS: RANITIDINE HCL 150 MG TABLET (FP) PO SCH ×2 (09:40→21:23)
[2017-05-13] MEDS: BISACODYL 5 MG TABLET.DR (FP) PO PRN (14:23)
[2017-05-13] MEDS: traZODone HCL 100 MG TABLET (FP) PO SCH (21:23)
[2017-05-13] MEDS: THIAMINE HCL 100 MG TABLET (FP) PO SCH (21:23)
[2017-05-14] MEDS: METHADONE HCL 40 MG DISPERSABLE TABLET PO SCH (06:11)
[2017-05-14] MEDS: DOCUSATE SODIUM 100 MG CAPSULE (FP) PO SCH ×3 (06:11→21:12)
[2017-05-14] MEDS: RANITIDINE HCL 150 MG TABLET (FP) PO SCH ×2 (09:41→21:12)
[2017-05-14] MEDS: PRENATAL VITAMINS W/ FOLIC ACID TABLET (FP) PO SCH (09:41)
[2017-05-14] MEDS: NICOTINE 21 MG/24 HOURS TOPICAL PATCH TD SCH (09:41)
[2017-05-14] MEDS: BISACODYL 5 MG TABLET.DR (FP) PO PRN (09:42)
[2017-05-14] MEDS: THIAMINE HCL 100 MG TABLET (FP) PO SCH (21:12)
[2017-05-14] MEDS: traZODone HCL 100 MG TABLET (FP) PO SCH (21:12)
[2017-05-15] MEDS: DOCUSATE SODIUM 100 MG CAPSULE (FP) PO SCH ×3 (05:46→21:09)
[2017-05-15] MEDS: METHADONE HCL 40 MG DISPERSABLE TABLET PO SCH (05:47)
[2017-05-15] MEDS: PRENATAL VITAMINS W/ FOLIC ACID TABLET (FP) PO SCH (09:38)
[2017-05-15] MEDS: NICOTINE 21 MG/24 HOURS TOPICAL PATCH TD SCH (09:38)
[2017-05-15] MEDS: RANITIDINE HCL 150 MG TABLET (FP) PO SCH ×2 (09:38→21:09)
[2017-05-15] MEDS: BISACODYL 5 MG TABLET.DR (FP) PO PRN (09:39)
[2017-05-15] MEDS: THIAMINE HCL 100 MG TABLET (FP) PO SCH (21:08)
[2017-05-15] MEDS: traZODone HCL 100 MG TABLET (FP) PO SCH (21:09)
[2017-05-16] MEDS: METHADONE HCL 40 MG DISPERSABLE TABLET PO SCH (06:21)
[2017-05-16] MEDS: DOCUSATE SODIUM 100 MG CAPSULE (FP) PO SCH (06:21)
[2017-05-16 06:55] VITALS: BP 127/93; PULSE 68; TEMP 98.6
--- NOTE | 2017-05-16 07:13 | PN ---
Psychiatric Progress Note Vital Signs: Vital Signs Period Temp Pulse Resp BP Sys/Moreno Pulse Ox Last 24 Hr 98.6 F 68 18-18 127/93 Date of Session: 05/16/17 Chief Complaint:: Discharge Note HPI: Patient addressing Alcohol, Cocaine and Cannabis Dependence comorbid with Opoid Dependence on Agonist Therapy, Nicotine Dependence, Substance-Induced Mood Disorder ans Substance-Induced Sleep Disorder ROS: Hep C, GERD were medically managed Current Medications: Active Medications Generic Name Dose Route Start Last Admin Trade Name Freq PRN Reason Stop Dose Admin Acetaminophen 650 mg 05/01/17 12:49 05/13/17 18:26 Tylenol - PO 650 mg Q4H PRN Administration FEVER OR PAIN Al Hydroxide/Mg Hydroxide 30 ml 05/01/17 12:49 05/08/17 18:03 Mylanta Oral Suspension - PO 30 ml Q6H PRN Administration DYSPEPSIA Bisacodyl 5 mg 05/13/17 08:25 05/15/17 09:39 Dulcolax - PO 5 mg DAILY PRN Administration CONSTIPATION Diphenhydramine HCl 50 mg 05/01/17 12:49 05/01/17 21:43 Benadryl - PO 50 mg HSMR1 PRN Administration FOR ITCHING Docusate Sodium 100 mg 05/01/17 14:00 05/16/17 06:21 Colace - PO 100 mg TID DENNISE Administration Eucalyptus/Menthol/Phenol/Sorbitol 1 each 05/01/17 12:49 Cepastat Lozenge - MM Q4H PRN SORE THROAT Guaifenesin 10 ml 05/01/17 12:49 Robitussin Dm - PO Q6H PRN COUGH Hydroxyzine Pamoate 50 mg 05/01/17 12:49 05/10/17 18:43 Vistaril - PO 50 mg Q4H PRN Administration AGITATION Ibuprofen 400 mg 05/01/17 12:49 Motrin - PO Q6H PRN PAIN Loperamide HCl 4 mg 05/01/17 12:49 Imodium - PO Q6H PRN DIARRHEA Magnesium Hydroxide 30 ml 05/01/17 12:49 05/04/17 13:29 Milk Of Magnesia - PO 30 ml DAILY PRN Administration CONSTIPATION Methadone HCl 200 mg 05/13/17 06:00 05/16/17 06:21 Dolophine - PO 200 mg DAILY@0600 DENNISE Administration Nicotine 21 mg 05/02/17 10:00 05/15/17 09:38 Nicoderm Patch - TD 21 mg DAILY DENNISE Administration Multivit/Folic Acid/Iron 1 tab 05/02/17 10:00 05/15/17 09:38 Vitamins (Sjr) - PO 1 tab DAILY DENNISE Administration Pseudoephedrine/Triprolidine 1 combo 05/01/17 12:49 Actifed - PO TID PRN NASAL CONGESTION Ranitidine HCl 150 mg 05/04/17 10:00 05/15/17 21:09 Zantac - PO 150 mg BID DENNISE Administration Simethicone 80 mg 05/09/17 09:05 05/12/17 09:41 Mylicon - PO 80 mg QID PRN Administration GAS Thiamine HCl 100 mg 05/01/17 22:00 05/15/17 21:08 Vitamin B1 - PO 100 mg HS DENNISE Administration Trazodone HCl 100 mg 05/02/17 22:00 05/15/17 21:09 Desyrel - PO 100 mg HS DENNISE Administration Current Side Effect: No Lab tests ordered: Yes Lab tests reviewed: Yes Provider note:: Patient has completed this program today. He has met his treatment goals and will continue to address his issues in outpatient treatment at [facility]. 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 He responded well to Trazadone 100 mg po HS. Script for that medication is electronically transmitted to [facility] at [address] [place] [address]. He is stable for discharge today Total face to face time:: 35 Mental Status Exam - Mental Status Exam Alert and Oriented to: Time, Place, Person Cognitive Function: Fair Patient Appearance: Well Groomed Mood: Hopeful, Euthymic Affect: Appropriate Patient Behavior: Cooperative Speech Pattern: Clear Voice Loudness: Normal Thought Process: Intact, Goal Oriented Thought Disorder: Not Present Hallucinations: Denies Suicidal Ideation: Denies Homicidal Ideation: Denies Insight/Judgement: Fair Sleep: Fair Appetite: Fair Muscle strength/Tone: Normal Gait/Station: Normal Psychiatric Treatment Plan - Problem List (1) Alcohol dependence Current Visit: Yes (2) Cocaine dependence Current Visit: Yes (3) Cannabis dependence Current Visit: Yes (4) Opioid dependence on agonist therapy Current Visit: Yes (5) Nicotine dependence Current Visit: No Qualifiers: Nicotine product type: cigarettes Substance use status: in withdrawal Qualified Code(s): F17.213 - Nicotine dependence, cigarettes, with withdrawal (6) Substance induced mood disorder Current Visit: Yes (7) Substance-induced sleep disorder Current Visit: Yes (8) Hepatitis C virus Current Visit: Yes (9) GERD (gastroesophageal reflux disease) Current Visit: Yes Initial treatment plan: Patient is discharged today and referred to [facility]
[2017-05-16] MEDS: PRENATAL VITAMINS W/ FOLIC ACID TABLET (FP) PO SCH (09:40)
[2017-05-16] MEDS: RANITIDINE HCL 150 MG TABLET (FP) PO SCH (09:40)
[2017-05-16] MEDS: NICOTINE 21 MG/24 HOURS TOPICAL PATCH TD SCH (09:41)
== END 2017-05-16 09:55 | disposition home or self-care (01) | DRG 772 ==
LOC: YASAS 12:09 → Y3W 12:11
PROVIDERS: ADMIT Psychiatry & Neurology Psychiatry; ATTEND Psychiatry & Neurology Psychiatry
PROC: HZ42ZZZ Group Counseling for Substance Abuse Treatment, Cognitive-Behavioral (ICD-10-PCS; principal; 2017-05-16)
DX: F11.20 Opioid dependence, uncomplicated (principal); F10.20 Alcohol dependence, uncomplicated; F12.20 Cannabis dependence, uncomplicated; F17.213 Nicotine dependence, cigarettes, with withdrawal; F19.282 Other psychoactive substance dependence with psychoactive substance-induced sleep disorder; F19.24 Other psychoactive substance dependence with psychoactive substance-induced mood disorder; B18.2 Chronic viral hepatitis C; K21.9 Gastro-esophageal reflux disease without esophagitis